=== PATIENT | female | born 1950 | race Caucasian/White ===

== ENCOUNTER → 2016-12-10 | Outpatient (CLI) | payer OTHER | LOC: MMPC 11:11 | DX: I10 Essential (primary) hypertension (principal); R31.9 Hematuria, unspecified; G60.9 Hereditary and idiopathic neuropathy, unspecified; E78.5 Hyperlipidemia, unspecified; K21.9 Gastro-esophageal reflux disease without esophagitis; M25.512 Pain in left shoulder; Z86.010 Personal history of colon polyps; Z87.440 Personal history of urinary (tract) infections | CPT/HCPCS: 99213; G0463 ==